=== PATIENT | female | born 2000 | race Caucasian/White ===

== ENCOUNTER 2023-02-24 04:49 | Emergency (ER) | payer OTHER ==
[2023-02-24] MEDS ORDERED: Ketorolac Tromethamine 30 MG/ML VIAL ONE (05:10)
[2023-02-24 05:16] LABS: #Eosinphils 0.1 thou/uL (0.0-0.7); #Monocytes 0.5 thou/uL (0.11-0.59); #Neutrophils 4.5 thou/uL (1.40-6.50); %Basophils 0.6 % (0.0-1.0); %Eosinophils 1.3 % (0.0-10.0); %Lymphocytes 26.8 % (21.0-51.0); %Monocytes 7.5 % (0.0-10.0); %Neutrophils 63.5 % (42.0-75.0); Hematocrit 43.5 % (36.0-47.0); Hemoglobin 14.8 g/dL (12.0-16.0); Mean Corpuscular Hemoglobin 29.4 pg (27.0-31.0); Mean Corpuscular Volume 86.5 fl (78.0-98.0); Mean Platelet Volume 10.4 fL (7.4-10.4); Platelet Count 266 10x3/uL (130-400); RBC Distribution Width 14.1 % (11.5-14.5); Red Blood Cell (RBC) Count 5.03 mill/uL (4.20-5.40); White Blood Cell (WBC) Count 7.1 10x3/uL (4.8-10.8)
[2023-02-24 05:44] LABS: Acetaminophen 21 mcg/mL (10.0-30.0); Alcohol 115.3 mg/dL (Less than 10); Lipase 84 U/L (8-78); Salicylate Less than 8.0 mg/dL (15.0-30.0)
[2023-02-24 05:45] LABS: ALT (SGPT) 24 U/L (8-55); AST (SGOT) 32 U/L (5-34); Albumin 5.1 g/dL (3.5-5.0); Alkaline Phosphatase 86 U/L (40-110); Anion Gap 15 mmol/L (10-20); BUN (Urea Nitrogen) 7 mg/dL (7.0-18.7); Bilirubin, Total 0.5 mg/dL (0.2-1.2); Calc. Creatinine Clearance 0 mL/min (70-130); Calcium 9.5 mg/dL (7.8-10.44); Carbon Dioxide 22 mmol/L (22-29); Chloride 105 mmol/L (98-107); Estimated GFR 101; Globulin 2.8 g/dL (2.4-3.5); Glucose 99 mg/dL (70-105); Potassium 3.8 mmol/L (3.5-5.1); Protein, Total 7.9 g/dL (6.0-8.3); Sodium 138 mmol/L (136-145)
[2023-02-24 05:48] LABS: BHCG - Serum Negative (NEGATIVE); Pregs Control Background? CLEAR/WHITE (CLR/WHITE); Pregs Control Bar Appear? YES (CONTROL BAR)
[2023-02-24] MEDS ORDERED: Iopamidol-370 76% 500 ML MDV (1 ML CHARGE) ONE (10:11)
== END 2023-02-24 06:55 | disposition home or self-care (01) ==
LOC: ERS 04:49
DX: S90.02XA Contusion of left ankle, initial encounter (principal); S80.812A Abrasion, left lower leg, initial encounter; V48.6XXA Car passenger injured in noncollision transport accident in traffic accident, initial encounter
CPT/HCPCS: 70450; 71260; 72125; 74177; 80053; 80307; 83690; 84703; 85025; 96374; J1885; Q9967

== ENCOUNTER 2023-02-27 18:02 | Emergency (ER) | payer OTHER ==
[2023-02-27] MEDS ORDERED: cefTRIAXone (ROCEPHIN) 250 MG VIAL ONE (19:34)
[2023-02-27] MEDS ORDERED: Lidocaine 1% PF 5 ML VIAL ONE (19:34)
[2023-02-27] MEDS ORDERED: Azithromycin 250 MG TAB ONE (19:34)
[2023-02-28 12:54] LABS: GC by PCR, Vaginal Swab Not Detected (NotDetected)
== END 2023-02-27 19:56 | disposition home or self-care (01) ==
LOC: ERS 18:02
DX: M79.605 Pain in left leg (principal); M25.572 Pain in left ankle and joints of left foot; N89.8 Other specified noninflammatory disorders of vagina; F17.210 Nicotine dependence, cigarettes, uncomplicated
CPT/HCPCS: 87480; 87510; 87591; 87660; 96372; J0696

== ENCOUNTER 2023-04-01 02:25 | Emergency (ER) | payer OTHER ==
[2023-04-01] MEDS ORDERED: predniSONE 20 MG TAB ONE (02:38)
[2023-04-01 03:24] LABS: SARS-CoV-2 NAA Rapid Test Not Detected (NotDetected)
== END 2023-04-01 03:54 | disposition home or self-care (01) ==
LOC: ERS 02:25
DX: J02.9 Acute pharyngitis, unspecified (principal); Z20.822 Contact with and (suspected) exposure to COVID-19; F17.210 Nicotine dependence, cigarettes, uncomplicated
CPT/HCPCS: 87081; 87430; 99283; J7512